=== PATIENT | female | born 1950 | race Caucasian/White ===

== ENCOUNTER 2016-12-29 17:57 | Inpatient (IN) | payer MEDICARE, OTHER ==
--- NOTE | ~2016-12-29 | CN ---
Consultation Report [facility] [address] [place]. [address] NAME: DENNIS SANDOVAL : 48 STATUS : ADM IN PAT#: [id number] AGE: 66 ADM/REG DATE : 12/29/16 MR#: [id number] REPORT SERV DATE: 12/30/16 DICTATED BY: INDRA RILEY DATE: 12/29/16 REPORT STATUS : Draft TRANSCRIBED BY: MODL DATE: 12/29/16 CONSULTATION DATE OF CONSULTATION: 12/29/2016 REASON FOR CONSULTATION: Regarding acute kidney injury brief. BRIEF HISTORY OF PRESENT ILLNESS: A 66-year-old white female with a history diabetes mellitus type 2, hypertension, morbid obesity with recent hospitalization at [facility] from 12/02/2016 through 12/06/2016 for influenza A and new onset paroxysmal atrial fibrillation, and was discharged in normal sinus rhythm on Betapace and digoxin therapy. The patient presents to [facility] ER with two days of nausea, vomiting, and abdominal pain. Recently diagnosed with UTI, placed on Bactrim therapy two days prior to admission as well. Poor p.o. intake and on evaluation, the patient was noted to have a BUN and creatinine of 65 and 5.17 with a baseline creatinine of 0.9, just last month. We are consulted for further evaluation and management of renal dysfunction. The patient currently being seen in the ICU, Griffin catheter in place with very concentrated minimal urine output. The patient received 1 L of normal saline in the ER, and then maintenance IV fluids. The patient is awake, but is lethargic and primary history is provided by family members at bedside. The patient is currently noted to be bradycardic with heart rate in the 30s. Digoxin level was noted to be elevated at 2.6. PAST MEDICAL HISTORY: 1. New onset atrial fibrillation, followed by Dr. Long, on digoxin and Betapace therapy. 2. Diabetes mellitus, type 2. 3. Hypertension. 4. Morbid obesity. 5. Anemia. 6. Recent influenza A, last month. 7. Intermittent uterine bleeding. MEDICATIONS ON ADMISSION: Include Lexapro 10 mg daily, estradiol EC, iron, Lasix 40 mg daily, Norvasc 5 mg b.i.d., Eliquis 5 mg b.i.d., digoxin 0.125 mg daily, Neurontin 600 mg t.i.d., Humalog insulin pump, Glucophage 1000 mg b.i.d., lisinopril hydrochlorothiazide 20/12.5 mg daily, Provera 5 mg daily, Nexium 40 mg daily, Betapace 80 mg b.i.d., Tamiflu 75 mg b.i.d., Tylenol p.r.n. [id number], MiraLAX, tramadol, Pravachol at bedtime. ALLERGIES: NO KNOWN DRUG ALLERGIES. SURGICAL HISTORY: Bilateral tubal ligation, wisdom tooth extraction. SOCIAL HISTORY: Denies tobacco, alcohol, or illicit drug use. FAMILY HISTORY: Positive for diabetes. Negative for coronary artery disease. Negative for Consultation Report [address] [place]. [address] NAME: DENNIS SANDOVAL : 48 STATUS : ADM IN [facility]#: [id number] AGE: 66 ADM/REG DATE : 12/29/16 MR#: [id number] REPORT SERV DATE: 12/30/16 DICTATED BY: INDRA RILEY DATE: 12/29/16 REPORT STATUS : Draft TRANSCRIBED BY: JIGAR DATE: 12/29/16 renal disease. REVIEW OF SYSTEMS: Negative except as mentioned in the HPI. PHYSICAL EXAMINATION: VITAL SIGNS: Temperature is 99.2, blood pressure 102/34, pulse of 39, respiratory rate is 12. GENERAL: Obese, white female, in no acute distress, awake, but lethargic. HEENT: Normocephalic, atraumatic. Pupils are equal. Sclerae anicteric. Mucous membranes are dry. NECK: Supple. No thyromegaly. CARDIOVASCULAR: Regular rate and rhythm. No murmurs appreciated. RESPIRATORY: : Clear to auscultation bilaterally with decreased breath sounds at bases. ABDOMEN: Soft, obese, nontender, and nondistended. Positive bowel sounds. EXTREMITIES: No clubbing, cyanosis with trace edema of the lower extremities bilaterally. SKIN: No rashes or ulcerations appreciated. NEURO: Moves all extremities well, but has generalized weakness. : Griffin catheter in place. LABORATORY DATA: Sodium 134, potassium 4.7, chloride 99, bicarb 20, BUN 65, creatinine 5.2, glucose is 144, calcium 7.6, magnesium 2.0, phosphorus 6.0. White count 20, hemoglobin is 8.7, and platelet count is 249. Troponin negative. TSH slightly elevated at 6.44. Albumin 2.8. Lactic acid 3.7. Cortisol is 8.9. UA, cloudy, 100 protein, negative blood, white blood cells 18, many white blood cell clumps, and occasional bacteria. ASSESSMENT AND PLAN: 1. Nonoliguric acute kidney injury. Likely multifactorial ATN with about prerenal condition plus Bactrim plus bradycardia, on Betapace and digoxin with toxicity and ANDREW inhibitor. Fluid resuscitate support, hemodynamics. Consider Digibind therapy. If no significant urine output over the next 12 hours, consider diuretic challenge. Continue supportive care. Monitor labs. No acute need for renal replacement therapy, and partners to follow in a.m. 2. Bradycardia. 3. Procardia and digoxin toxicity, questionable Digibind therapy. 4. Diabetes mellitus type 2. 5. Hypertension. Currently blood pressure controlled. 6. Obesity. Family updated at bedside and discussed with Dr. Jeong and RN. NCP/SUZYL Consultation Report [place] [id number] [facility] [place]. [address] NAME: DENNIS SANDOVAL : [birth year] STATUS : ADM IN PAT#: [id number] AGE: 66 ADM/REG DATE : 12/29/16 MR#: [id number] REPORT SERV DATE: 12/30/16 DICTATED BY: INDRA RILEY. DATE: 12/29/16 REPORT STATUS : Draft TRANSCRIBED BY: MODL DATE: 12/29/16 Indra Riley M.D. / [id number] CC: MD Mayra Soria NP
--- NOTE | ~2016-12-29 | HP ---
History And Physical [place] [address] [facility] [place]. [address] NAME: DENNIS MENDENHALL : 49 STATUS : ADM IN [facility]#: [id number] AGE: 66 ADM/REG DATE : 12/29/16 MR#: [id number] REPORT SERV DATE: 12/30/16 DICTATED BY: HEATHER WHITTEN DATE: 12/29/16 REPORT STATUS : Draft TRANSCRIBED BY: MODL DATE: 12/29/16 DATE OF ADMISSION: 12/29/2016 REASON FOR ADMISSION: Acute renal failure and metabolic acidosis with clinical evidence of dehydration. HISTORY OF PRESENT ILLNESS: Ms. Mendenhall is a 66-year-old lady who presented from home complaining of weakness with dry mouth and overall feeling poorly for the last couple of days. Evidently, she had been seen by her primary care physician on Tuesday who evaluated her, diagnosed a urinary tract infection, and started her on Bactrim and Pyridium as treatment. Since that time, she has been worsening with regard to generalized weakness and decreased urine output. Of note, her intake has been fairly poor as well. She reports not eating or drinking much of anything the last couple of days, and her family reports that she has been somewhat confused. Upon presentation to the emergency department today, she was noted to have hypoglycemia and mild lactic acidosis with acute renal failure on her labs. She did receive around 1 L of fluid total in the emergency department and was moved up to the CCU for further management. Additional lab workup showed leukocytosis with bandemia and some pyuria on UA. PAST MEDICAL HISTORY: Other past medical history of diabetes mellitus with chronic insulin pump use, GERD, hypertension, dyslipidemia, anxiety, depression, paroxysmal atrial fibrillation which was a new diagnosis in mid November during her hospitalization at [facility], recent influenza A also diagnosed during that hospitalization at [facility], and iron-deficiency anemia. SURGICAL HISTORY: Had a bilateral tubal ligation in the 1970s, wisdom tooth extraction, hysteroscopy with D and C on 12/29/2010, and colonoscopy in 2005. SOCIAL HISTORY: Denies tobacco, alcohol, or illicit drug use. She is dependent on family for care since she has been sick. FAMILY HISTORY: Multiple first-degree relatives with type 2 diabetes mellitus. She has no advanced directives or living monroe. Her family is assisting with medical decision making while she is ill. ALLERGIES: DRUG ALLERGIES ARE NONE. HOME MEDICATIONS: Amlodipine 5 mg twice a day; Eliquis 5 mg twice a day; digoxin 0.125 mg every morning; Lexapro 10 every morning; Nexium 40 mg at bedtime; estradiol 2 mg at bedtime; iron supplementation twice daily, 200 mg; Lasix 40 mg every morning; Neurontin 600 mg three times daily; Medtronic Mini-Med insulin pump with Humalog continuous infusion subcutaneously; lisinopril/hydrochlorothiazide 20/12.5 two tablets every morning; medroxyprogesterone 5 mg every morning; Glucophage 1000 mg at breakfast and dinner; MiraLAX 1 packet twice a day as needed for constipation; 20 mg of Pravachol daily; sotalol 80 mg twice a day; loperamide as needed for diarrhea; and Tylenol as needed for headaches or pain. History And Physical [address] [address] NAME: DENNIS MENDENHALL : 49 STATUS : ADM IN [facility]#: [id number] AGE: 66 ADM/REG DATE : 12/29/16 MR#: [id number] REPORT SERV DATE: 12/30/16 DICTATED BY: HEATHER WHITTEN DATE: 12/29/16 REPORT STATUS : Draft TRANSCRIBED BY: JIGAR DATE: 12/29/16 New medications include Pyridium 200 mg three times daily for urinary tract burning and Bactrim 1 tab b.i.d. (double strength tab) beginning on 12/27/2016. REVIEW OF SYSTEMS: A comprehensive 13-point review of systems was completed and was negative except for those points described above in the history of present illness section of the dictation. PHYSICAL EXAMINATION: VITAL SIGNS: Heart rate is 38, blood pressure is 118/51, respiration rate is ranging from 30 to 40, oxygen saturation is 98% on Vapotherm unit, she was previously on 10 L of oxygen. She is afebrile and awake but mildly encephalopathic. HEENT: She is a female with dry mouth and lips. Head is atraumatic and normocephalic. Pupils are equal, round, and reactive to light. Extraocular movements are intact. She has mild conjunctival pallor and slightly sunken eyes. Ears, nose, and mouth are unremarkable except for very dry oral mucosa and fair oral dentition. NECK: Supple with some redundant soft tissue limiting assessment of JVD. She has diminished breath sounds, bilateral bases. HEART: Bradycardic with sinus bradycardia on the monitor. She has sluggish cap refill, distal extremities, but it is warm to touch throughout. ABDOMEN: Soft, obese, nontender, and nondistended with positive bowel sounds in all four quadrants and no appreciable peritoneal signs. : A Griffin catheter is indwelling and draining a very minimal amount of dark urine. EXTREMITIES: Without clubbing, cyanosis, or edema. LYMPHATIC: Unremarkable. NEUROLOGIC: She is oriented x1 but is able to follow commands. She is able to provide some of her history which is augmented by her family. Moves all four extremities. Withdraws to pain symmetrically. Cranial nerve function appears to be intact. PSYCHIATRIC: Some confusion/encephalopathy as above but appropriate to situation. DIAGNOSTIC DATA: Personal review of diagnostic workup conducted today, her initial glucose was 48. Her initial ABG was 7.323, 36 of pCO2, PO2 of 154, base excess of 7.5, and a bicarb calculated at 18 on 100% FiO2. Lactate was 3.5 initially which had risen to 3.7 on followup study a few hours later. A urinalysis showed cloudy red urine with specific gravity of 1.020 with 100 of protein, negative leukocyte esterase, negative nitrite, 18 white blood cells, and many white blood cell clumps with many yeast which were budding. White blood cell count was 19.9 with 12% bands on differential. Hemoglobin is 8.7, hematocrit is 29.2, and platelet count is 249. Her INR is 2.6 in the setting of Eliquis use and impaired renal clearance. Metabolic Profile: Sodium is 134, potassium is 4.7, chloride is 99, carbon dioxide is 20, BUN is 65, and creatinine is 5.17 which is a delta from 38 and 0.90 on 12/05/2016. Calculated GFR is 18 mL/minute. Glucose is 144. On the chemistry panel, mag is 2.0, phosphorus is 6.0, CPK is 77, and CK-MB is 2.5. Troponin is negative. TSH is 6.440 which is a delta from 1.8 of 2013. Free T4 is 1.17. Digoxin is mildly elevated at 2.6. Cortisol is 58.9. BNP level is 281.2. Glycohemoglobin is 7.5. An echocardiogram on 12/02/2016 showed normal valves with hyperdynamic ejection fraction and mild diastolic dysfunction. An EKG performed in the emergency department showed sinus bradycardia with a QT prolongation at 484 and a rate of 48 beats per minute. A chest x-ray showed marked cardiomegaly, low lung volumes, and some hazy opacification bilaterally with few cardiac leads traversing the anterior chest. Bony structures are unremarkable on my assessment, History And Physical [address] [address] NAME: DENNIS MENDENHALL : 48 STATUS : ADM IN PAT#: [id number] AGE: 66 ADM/REG DATE : 12/29/16 MR#: [id number] REPORT SERV DATE: 12/30/16 DICTATED BY: HEATHER WHITTEN DATE: 12/29/16 REPORT STATUS : Draft TRANSCRIBED BY: JIGAR DATE: 12/29/16 although the radiologist's formal read remains pending. IMPRESSION: 1. Acute hypoxemic respiratory failure requiring Vapotherm for oxygenation support. 2. Acute renal failure in the setting of some degree of chronic kidney disease superimposed onto the use of ANDREW inhibitors and metformin as well as initiation of Bactrim double strength 2 days ago with minimal urine output since arrival and clinical evidence of marked volume depletion. 3. Mild metabolic acidosis. 4. History of paroxysmal atrial fibrillation with new initiation of multiple antiarrhythmic medications since her hospitalization a couple of weeks ago in the setting of impaired renal clearance. 5. Diabetes mellitus with chronic use of insulin pump. 6. Digoxin toxicity (mild) in the setting of impaired renal clearance. 7. Pyuria. 8. Past medical history of hypertension, dyslipidemia, GERD, diastolic dysfunction, recent influenza A, and long-term hormone replacement therapy use. 9. Elevated TSH at 6.440 without known history of thyroid disease in the past. 10.Leukocytosis with bandemia. 11.Normocytic hypochromic anemia in the setting of noted iron deficiency, on replacement. 12.Lactic acidosis. 13.Hypoglycemia at 48 on initial Accu-Chek at presentation in the emergency department. 14.Altered mental status likely secondary to some combination of the above. PLAN: We have already admitted Ms. Mendenhall to the Critical Care Unit. We will aggressively hydrate her and trend her renal function and urine output carefully. We will hold any potentially nephrotoxic home medications including Lasix, metformin, and also hold her anti- arrhythmic medications as she does have impaired renal clearance presently. Dr. Riley has evaluated her this evening and Dr. Long is also aware of her hospitalization. We will rule out rhabdomyolysis, cover her with broad-spectrum antibiotics, check a procalcitonin level, and make further adjustments to her regimen as clinically warranted. Her family was updated at the bedside with regard to the plan of care. Allison, in the CCU, she is full code. We will obtain further medical records and nursing staff was also updated on plan for care allison. RANI/JIGAR Heather Whitten MD / [id number] CC: MD Mayra Soria NP
--- NOTE | ~2016-12-29 | CN ---
Consultation Report [facility] [address] [place]. [address] NAME: DENNIS SANDOVAL : 48 STATUS : ADM IN PAT#: [id number] AGE: 66 ADM/REG DATE : 12/29/16 MR#: [id number] REPORT SERV DATE: 12/31/16 DICTATED BY: AJ WHITTEN DATE: 12/30/16 REPORT STATUS : Draft TRANSCRIBED BY: JIGAR DATE: 12/30/16 CPR/CODE BLUE RESPONSE NOTE. DATE OF CONSULTATION: DATE OF CODE BLUE: 12/30/2016. TIME OF CODE BLUE: 2328 hours. LOCATION OF CODE BLUE: CCU bed 5 Code Blue was called by bedside nurse at 2328 hours. The patient had been quite stable throughout the evening with no major clinical changes. At around 2327 hours, she suddenly rey down to asystole. She was quite cyanotic despite being very easy to bag. ACLS was initiated immediately and she was connected to the defibrillator, an amp of epinephrine was given immediately upon availability of code drugs at 2328 hours and initial pulse check at 2330 hours, she was in asystole. She received additional epinephrine, amp of bicarb, and an amp of calcium chloride. CPR was continued, and on second rhythm check at 2332 hours, she was still in asystole, additional amps of epinephrine were given as well as additional amps of bicarb and calcium chloride and an amp of D50. ACLS was continued for 3 more rounds with persistent asystole on the monitor. A point of care ultrasound was used to visualize the heart which showed no cardiac contractility and dilated right atrium and ventricle, point of care ultrasound was used to visualize vasculature of the groin and noncompressible vein was noted on the right, overlying the pulsatile femoral artery laterally. There was a high clinical suspicion for acute pulmonary embolus and in light of her persistent asystole despite 6 rounds of epinephrine and compression. ACLS was discontinued, and the patient at 2340 hours. Her sister Harini was updated by telephone twice during her Code Blue by myself and the bedside nurses and all of her questions were answered. Family was en route to the hospital at the time of this dictation. RANI/JIGAR Aj Whitten MD / [id number] CC: MD Jannette Soria
--- NOTE | ~2016-12-29 | DS ---
Discharge Summary [facility] [address] [place]. [address] NAME: DENNIS MENDENHALL : 48 STATUS : ADM IN PAT#: [id number] AGE: 66 ADM/REG DATE : 12/29/16 MR#: [id number] REPORT SERV DATE: 12/31/16 DICTATED BY: AJ WHITTEN DATE: 12/30/16 REPORT STATUS : Draft TRANSCRIBED BY: MODL DATE: 12/30/16 ADMISSION DATE: 12/29/2016 DISCHARGE DATE: SUMMARY DATE OF : 12/30/2016 BRIEF HISTORY OF PRESENT ILLNESS: Ms. Mendenhall is a 66-year-old lady with underlying type 2 diabetes mellitus, hypertension, and morbid obesity, who presented to our facility with acute renal failure. She was actually admitted to [facility] mid November and was started on Betapace and digoxin. She presented to her primary care physician on Tuesday of this week with urinary tract infection and was placed on Bactrim therapy and presented to our emergency department last night complaining of nausea and vomiting and increased edema with findings of metabolic acidosis and acute renal failure on her labs. She was seen by Dr. Long from Cardiology and Dr. Riley from Nephrology and the consensus was that she had multifactorial acute tubular necrosis with prerenal condition superimposed on to recent Bactrim use in the setting of underlying ANDREW inhibitor and metformin use and toxicity from digoxin due to impaired renal clearance. She was treated with Digibind and was started on HRIS COORDINATOR. She was intubated for worsening respiratory distress associated with fluid administration. She was clinically stable on low-dose Levophed and mechanical ventilation with HRIS COORDINATOR circuit running on the evening of 12/30/2016 and her bedside nurse who was in the room at the time of her declined suddenly noticed that she had become further more bradycardic and quite cyanotic. ACLS was immediately initiated and she underwent six rounds of drugs and compressions. Her rhythm never moved out of asystole during her cardiac code, a point of care ultrasound was performed and noncompressible vein was noted over the right groin (the right common femoral vein) and echocardiogram showed no cardiac contractility. No evidence of pericardial effusion but a markedly dilated right atrium and ventricle. There was high clinical suspicion for pulmonary embolus especially in light of her lack of response to epinephrine and chest compressions and ultimately resuscitated efforts were discontinued and she at 2340. Her sister Harini was updated by telephone on this evening's events and all of her questions were answered. DIAGNOSES: At the time of included: 1. Acute hypoxemic respiratory failure with associated asystole cardiac arrest with high clinical suspicion for acute pulmonary embolus. 2. Non-oliguric acute kidney injury secondary to multifactorial acute tubular necrosis. Contributing factors including prerenal condition and medications including Bactrim, ANDREW inhibitor, and metformin. 3. Digoxin toxicity with associated bradycardia status post treatment with Digibind secondary to number two. 4. Paroxysmal atrial fibrillation. 5. Type 2 diabetes mellitus. 6. History of hypertension and obesity with recent influenza A infection last month. Discharge Summary [address] [address] NAME: DENNIS MENDENHALL : 48 STATUS : ADM IN PAT#: [id number] AGE: 66 ADM/REG DATE : 12/29/16 MR#: [id number] REPORT SERV DATE: 12/31/16 DICTATED BY: AJ WHITTEN DATE: 12/30/16 REPORT STATUS : Draft TRANSCRIBED BY: JIGAR DATE: 12/30/16 RANI/JIGAR Aj Whitten MD / [id number] CC: MD Mayra Soria NP
--- NOTE | ~2016-12-29 | OP ---
Record Of Operation [facility] [address] [place]. [address] NAME: DENNIS SANDOVAL : 48 STATUS : ADM IN [facility]#: [id number] AGE: 66 ADM/REG DATE : 12/29/16 MR#: [id number] REPORT SERV DATE: 12/30/16 DICTATED BY: AJ WHITTEN DATE: 12/30/16 REPORT STATUS : Draft TRANSCRIBED BY: MODL DATE: 12/30/16 DATE OF PROCEDURE: 12/30/2016 INTUBATION NOTE INDICATION: Intubation, respiratory distress, and hypoxemia. PREMEDICATION: Etomidate 20 and rocuronium 50 mg. PROCEDURE IN DETAIL: After developing worsening respiratory distress over the last hour with hypoxemia requiring 100% oxygen, decision was made to intubate for airway protection and advanced respiratory support. She was premedicated with the above medications and #3 GlideScope was used to visualize her fairly anterior vocal cords and a #7.5 tube was passed through them on the first attempt without difficulty and secured to the patient at 22 cm at the lips. She had bilateral breath sounds. Positive color change on CO2 detector. Condensation in the tube with bagging and no air auscultated over the fundus of the stomach with bagging. A followup chest x-ray was pending at the time of this dictation and her sisters were updated by telephone of her clinical deterioration. RANI/JIGAR Aj Whitten MD / [id number] CC: MD ROC Soria
--- NOTE | ~2016-12-29 | CN ---
Consultation Report [facility] [address] [place]. [address] NAME: DENNIS MENDENHALL : 48 STATUS : ADM IN PAT#: [id number] AGE: 66 ADM/REG DATE : 12/29/16 MR#: [id number] REPORT SERV DATE: 12/30/16 DICTATED BY: CHARLIE RAMIREZ DATE: 12/30/16 REPORT STATUS : Draft TRANSCRIBED BY: MODL DATE: 12/30/16 CARDIOVASCULAR CONSULTATION DATE OF CONSULTATION: 12/30/2016 REFERRING PHYSICIAN: Mayra Altamirano. REASON FOR CONSULTATION: Digoxin toxicity. HISTORY OF PRESENT ILLNESS: Ms Dennis Mendenhall is a 66-year-old female with past medical history significant for diabetes, hypertension, gastroesophageal reflux disease, depression, and anxiety, who presented to the emergency room last night complaining of two days of nausea, vomiting, and abdominal pain. The patient had recently been admitted to [facility] in November secondary to the flu. She had paroxysmal atrial fibrillation at that time, which was successfully treated. She was discharged on Betapace and digoxin. The patient was found to be digitoxic in the emergency room with heart rate in the 30s. She was given Digibind and dopamine which maintained her blood pressure and increased her heart rate into the 40s. She was intubated overnight secondary to respiratory distress. REVIEW OF SYSTEMS: Obtained per chart and discussion with the ER physician. This patient is now intubated. As noted above, significant for nausea, vomiting, and abdominal pain for two days. The patient also had reported a recent urinary tract infection and was placed on Bactrim. PAST MEDICAL HISTORY: As noted above, significant for paroxysmal atrial fibrillation, on digoxin and Betapace. The patient also with a history of hypertension, recent Influenza A, morbid obesity, anxiety, and depression, gastroesophageal reflux disease, and hypertension. MEDICATIONS: Prior to admission, see list. ALLERGIES: THE PATIENT HAS NO KNOWN DRUG ALLERGIES. SOCIAL HISTORY: The patient does not smoke. FAMILY HISTORY: Negative for coronary artery disease. PHYSICAL EXAMINATION: VITAL SIGNS: Blood pressure 90/55, pulse 45. The patient is currently intubated. GENERAL: This is a well-developed, well-nourished, obese 66-year-old female, who is currently intubated and sedated. CARDIOVASCULAR: Decreased rate with regular rhythm. No murmur, gallop, click, or rub. LUNGS: Clear to auscultation. EXTREMITIES: Reveals 1+ lower extremity pitting edema. Consultation Report [facility] [address] [place]. [address] NAME: DENNIS MENDENHALL : 48 STATUS : ADM IN PAT#: [id number] AGE: 66 ADM/REG DATE : 12/29/16 MR#: [id number] REPORT SERV DATE: 12/30/16 DICTATED BY: CHARLIE RAMIREZ DATE: 12/30/16 REPORT STATUS : Draft TRANSCRIBED BY: MODL DATE: 12/30/16 LABORATORY DATA: On admission was significant for a potassium of 4.7, which has now increased to 5.7. BUN and creatinine are 66 and 5.59. White count has increased from 19.9 to 25.2. EKG shows sinus bradycardia with poor R-wave progression in septal leads. There is no acute injury pattern. No evidence of ongoing ischemia. ASSESSMENT: 1. Acute renal failure. 2. Questionable urosepsis. 3. Digoxin toxicity secondary to acute renal failure with digoxin and sotalol therapy. 4. Paroxysmal atrial fibrillation-now sinus rey. 5. Diabetes mellitus type 2. 6. Hypertension. PLAN: 1. Renal support. 2. Digibind. 3. Hold Betapace and digoxin. 4. Hold ANDREW inhibitor. 5. Continue dopamine as needed for heart rate and blood pressure. Her heart rate should increase as renal function improves and the digoxin level drops. I do not see the need for temporary pacemaker at this juncture. I appreciate your consultation on this complex patient. I will follow her closely with you. /JIGAR Charlie Ramirez M.D., [facility] / [id number] CC: MD ROMERO Soria VICKY L .
[2016-12-29 17:34] LABS: ALLENS TEST Pos; BE (BASE EXCESS) -7.5 MEQ/L (0 +/- 2.5); DEVICE NRB; HCO3 (ACTUAL BICARBONATE) 17.9 MEQ/L (23-27); HEMOBLOGIN CONTENT 9.8 G/DL (12-16); INSTRUMENT SERIAL # 8087; METHEMOGLOBIN 0.3 % (0-3); O2 CONTENT 13.8 VOL% (18-24); PCO2 (CO2 TENSION) 36 MMHG (35-45); PO2 (O2 TENSION) 154 MMHG (79-93); SAMPLE Arterial; pH 7.32 (7.37-7.43)
[~2016-12-29 17:57] MED LIST: ANADS PO; BETAPACE80 PO; BEYAZ 28 TABLE1 EACH PO; COREG3 PO; ELIQUIS 5 MG TAB5 MG PO; ESTRADIOL2 MG OR; ESTRADIOL2 MG PO; EZFE 200200 MG PO; GLUCOPHAGE1000 MG PO; HUMAPUMP SC; L40 PO; LAN125 PO; LEXAPRO10 PO; LYSTEDA; MIRALAX POWDER1 PKT PO; NEUR600 PO; NEXIUM40; NEXIUM40 PO; NORV5 PO; PRAVAC PO; PRINZIDE1 TA1 PO; PROVERA5 MG PO; REOCYTE PLUS OR; TAMIFLU PO; TRAZODONE150 MG PO; VICTOZA SC; ZESTORETIC1 TA1 PO
[2016-12-29 18:11] LABS: BASOPHILS 0.5 %; BASOPHILS ABSOLUTE 0.09 10/3/uL (0.0-0.16); EOSINOPHILS ABSOLUTE 0.39 10/3/uL (0.0-0.53); HEMOGLOBIN 8.7 g/dL (12.0-16.0); IMMATURE GRANULOCYTES 1.1 %; IMMATURE GRANULOCYTES ABSOLUTE 0.21 10/3/uL (0.0-0.11); LYMPHOCYTES 15.3 %; LYMPHOCYTES ABSOLUTE 3.04 10/3/uL (0.67-4.30); MEAN CORPUS HGB CONC 29.8 g/dL (32.0-36.0); MEAN CORPUSCULAR HEMOGLOB 24.2 pg (26.0-34.0); MEAN CORPUSCULAR VOLUME 81.1 fL (80-100); MONOCYTES 5.8 %; MONOCYTES ABSOLUTE 1.15 10/3/uL (0.21-1.20); NEUTROPHILS 75.3 %; NEUTROPHILS ABSOLUTE 14.98 10/3/uL (2.02-8.40); NUCLEATED RED BLOOD CELLS 0.5 /100WBC (0-0); RBC DISTRIBUTION WIDTH 20.9 % (12.0-16.0)
[2016-12-29 18:12] LABS: INTERNATIONAL NORMAL RATI 2.6 UNITS (-); PARTIAL THROMBO TIME 34.5 SEC (22.5-37.2)
[2016-12-29 18:13] LABS: PROTIME (NOT ORD) 27.3 SEC (12.0-14.5)
[2016-12-29 18:16] LABS: ER CBC TAT 0 Hrs 25 Mins; HEMATOCRIT 29.2 % (36.0-48.0); PLATELET COUNT 249 10/3/uL (150-400); WHITE BLOOD CELLS 19.9 10/3/uL (4.5-10.5)
[2016-12-29 18:17] LABS: MANUAL DIFF NO %
[2016-12-29 18:19] LABS: LACTATE 3.5 MMOL/L (0.3-2.4)
[2016-12-29 18:22] LABS: B NATRIURETIC PEPTIDE (BNP) 281.2 PG/ML (< 100.0)
[2016-12-29 18:28] LABS: BUN (BLOOD UREA NITROGEN) 65 MG/DL (6-23); CALCIUM, SERUM 7.6 MG/DL (8.5-10.4); CHEST PAIN PROFILE TAT 0 Hrs 25 Mins; CHLORIDE, SERUM 99 MMOL/L (96-112); CO2 (CARBON DIOXIDE) 20 MMOL/L (24-34); CREATININE 5.17 MG/DL (0.55-1.02); GFR AFRICAN AMERICAN 9 ML/MIN (>=60); GFR NON AFRICAN AMERICAN 8 ML/MIN (>=60); GLUCOSE, SERUM 144 MG/DL (60-99); POTASSIUM, SERUM 4.7 MMOL/L (3.5-5.3); SODIUM, SERUM 134 MMOL/L (135-148); TROPONIN I <0.02 NG/ML (<0.05)
[2016-12-29 18:29] LABS: DIGOXIN 2.6 NG/ML (0.8-2.0)
[2016-12-29 18:57] LABS: ASCORBIC ACID (UR NOT ORDER) NEG (NEG); BILIRUBIN, URINE NEGATIVE (NEG); ER URINALYSIS TAT 0 Hrs 20 Mins; KETONE, URINE NEGATIVE (NEG); LEUKOCYTE ESTERASE(NOT OR NEG (NEG); NITRITE (URINE) NEG (NEG); WBC (NOT ORDERED) (RFLEX) 18 (0-5)
[2016-12-29 19:33] LABS: SEGMENTED NEUTROPHIL (0) 70 %; TOTAL NUCLEATED CELLS 100
[2016-12-29 19:34] LABS: ANISOCYTOSIS 1+ (5-10/OIF) (0-5/OIF); BAND NEUTROPHILS 12 %; EOSINOPHILS 2 %; ER DIFF TAT 1 Hrs 42 Mins; LYMPHOCYTES 11 %; LYMPHOCYTES ABSOLUTE (CALC) 2.19 10/3/uL (0.67-4.30); METAMYELOCYTES 2 %; MONOCYTES 3 %; NEUTROPHILS ABSOLUTE (CALC) 16.32 10/3/uL (2.02-8.40); PLATELET ESTIMATE ADQ (ADEQUATE)
[2016-12-29] MEDS ORDERED: LAN125 PO (19:40)
[2016-12-29] MEDS ORDERED: ELIQUIS 5 MG TAB5 MG PO (19:40)
[2016-12-29] MEDS ORDERED: NORV5 PO (19:40)
[2016-12-29] MEDS ORDERED: EZFE 200200 MG PO (19:41)
[2016-12-29] MEDS ORDERED: NEXIUM40 PO (19:41)
[2016-12-29] MEDS ORDERED: LEXAPRO10 PO (19:41)
[2016-12-29] MEDS ORDERED: L40 PO (19:41)
[2016-12-29] MEDS ORDERED: GYNODIOL2 MG PO (19:41)
[2016-12-29] MEDS ORDERED: HUMAPUMP SC (19:42)
[2016-12-29] MEDS ORDERED: NEUR600 PO (19:42)
[2016-12-29] MEDS ORDERED: GLUCOPHAGE1000 MG PO (19:43)
[2016-12-29] MEDS ORDERED: MIRALAX POWDER1 PKT PO (19:43)
[2016-12-29] MEDS ORDERED: PRAVAC PO (19:43)
[2016-12-29] MEDS ORDERED: ZESTORETIC PO (19:43)
[2016-12-29] MEDS ORDERED: PROVERA5 MG PO (19:43)
[2016-12-29] MEDS ORDERED: BETAPACE80 PO (19:44)
[2016-12-29] MEDS ORDERED: ACET500CAP PO (19:52)
[2016-12-29] MEDS ORDERED: IMOD PO (19:52)
[2016-12-29] MEDS ORDERED: PYR200 PO (19:56)
[2016-12-29] MEDS ORDERED: SEPTRA DS1 TAB PO (19:56)
[2016-12-29 20:59] LABS: CPK 77 U/L (0-200); FREE T4 1.17 NG/DL (0.76-1.46)
[2016-12-29 21:05] LABS: CK-MB 2.5 NG/ML
[2016-12-29 21:17] LABS: GLYCOHEMOGLOBIN (HbA1c) 7.5 % (4.7-6.1)
[2016-12-30 02:12] LABS: SED RATE 106 MM/HR (0-20)
[2016-12-30 04:26] LABS: HEMATOCRIT 30.6 % (36.0-48.0); HEMOGLOBIN 9.2 g/dL (12.0-16.0); MEAN CORPUS HGB CONC 30.1 g/dL (32.0-36.0); MEAN CORPUSCULAR HEMOGLOB 24.5 pg (26.0-34.0); MEAN CORPUSCULAR VOLUME 81.4 fL (80-100); MEAN PLATELET VOLUME 11.2 fL (9.2-13.0); NUCLEATED RED BLOOD CELLS 0.5 /100WBC (0-0); RBC DISTRIBUTION WIDTH 20.5 % (12.0-16.0); RED CELL COUNT 3.76 10/6/uL (4.0-5.6)
[2016-12-30 04:30] LABS: PLATELET COUNT 332 10/3/uL (150-400); WHITE BLOOD CELLS 25.2 10/3/uL (4.5-10.5)
[2016-12-30 04:33] LABS: MANUAL DIFF YES %
[2016-12-30 05:18] LABS: A/G RATIO 0.4 (0.7-1.9); ALBUMIN 2.3 G/DL (3.5-5.0); ALKALINE PHOSPHATASE 92 U/L (45-117); BUN (BLOOD UREA NITROGEN) 66 MG/DL (6-23); CALCIUM, SERUM 8.1 MG/DL (8.5-10.4); CHLORIDE, SERUM 101 MMOL/L (96-112); CO2 (CARBON DIOXIDE) 17 MMOL/L (24-34); CPK 58 U/L (0-200); CREATININE 5.36 MG/DL (0.55-1.02); GFR AFRICAN AMERICAN 9 ML/MIN (>=60); GFR NON AFRICAN AMERICAN 8 ML/MIN (>=60); GLOBULIN 5.6 G/DL (2.5-4.1); GLUCOSE, SERUM 122 MG/DL (60-99); PHOSPHORUS, SERUM 6.5 MG/DL (2.5-4.5); POTASSIUM, SERUM 5.4 MMOL/L (3.5-5.3); SGOT(AST) 20 U/L (5-40); SGPT(ALT) 13 U/L (5-65); SODIUM, SERUM 134 MMOL/L (135-148); TOTAL BILIRUBIN 0.6 MG/DL (0-1.2); TOTAL PROTEIN 7.9 G/DL (6.0-8.5)
[2016-12-30 05:19] LABS: DIGOXIN 3.2 NG/ML (0.8-2.0)
[2016-12-30 05:46] LABS: ANISOCYTOSIS 1+ (5-10/OIF) (0-5/OIF); BAND NEUTROPHILS 9 %; HYPOCHROMIA 1+ (3-10/OIF) (0-2/OIF); LYMPHOCYTES 11 %; LYMPHOCYTES ABSOLUTE (CALC) 2.77 10/3/uL (0.67-4.30); MONOCYTES 2 %; NEUTROPHILS ABSOLUTE (CALC) 21.92 10/3/uL (2.02-8.40); SEGMENTED NEUTROPHIL (0) 78 %; TOTAL NUCLEATED CELLS 100
[2016-12-30 06:24] LABS: BE (BASE EXCESS) -8.9 MEQ/L (0 +/- 2.5); INSTRUMENT SERIAL # 35151; PCO2 (CO2 TENSION) 29 MMHG (35-45); PO2 (O2 TENSION) 324 MMHG (79-93); pH 7.34 (7.37-7.43)
[2016-12-30 06:25] LABS: CARBOXYHEMOGLOBIN 0.3 % (0-3); HCO3 (ACTUAL BICARBONATE) 15.6 MEQ/L (23-27); HEMOBLOGIN CONTENT 10.1 G/DL (12-16); METHEMOGLOBIN 0.6 % (0-3); MODE APRV; O2 CONTENT 14.9 VOL% (18-24); SAMPLE Arterial
[2016-12-30 06:31] LABS: OSMOLALITY, URINE 315 MOSM/KG (50-1200)
[2016-12-30 06:33] LABS: CREATININE, URINE 87.4 MG/DL
[2016-12-30 06:57] LABS: AMPHETAMINES (NOT ORD) NEG (NEG); BARBITURATES (NOT ORDERED NEG (NEG); BENZODIAZEPINES (NOT ORD) NEG (NEG); CANNABINOIDS (THC) NEG (NEG); COCAINE (NOT ORDERED) NEG (NEG); OPIATES NEG (NEG); PHENCYCLIDINE(PCP) NEG (NEG); TRICYCLICS NEG (NEG)
[2016-12-30 07:33] LABS: ALBUMIN 2.3 G/DL (3.5-5.0); BUN (BLOOD UREA NITROGEN) 66 MG/DL (6-23); CALCIUM, SERUM 7.9 MG/DL (8.5-10.4); CHLORIDE, SERUM 99 MMOL/L (96-112); CO2 (CARBON DIOXIDE) 16 MMOL/L (24-34); POTASSIUM, SERUM 5.7 MMOL/L (3.5-5.3); SODIUM, SERUM 134 MMOL/L (135-148)
[2016-12-30 07:34] LABS: GLUCOSE, SERUM 186 MG/DL (60-99)
[2016-12-30 07:56] LABS: CREATININE 5.59 MG/DL (0.55-1.02); GFR AFRICAN AMERICAN 8 ML/MIN (>=60); GFR NON AFRICAN AMERICAN 7 ML/MIN (>=60); PHOSPHORUS, SERUM 6.6 MG/DL (2.5-4.5); PREALBUMIN 6.3 MG/DL (17.0-43.0)
[2016-12-30 09:35] LABS: ALBUMIN 2.1 G/DL (3.5-5.0); CALCIUM, SERUM 7.8 MG/DL (8.5-10.4); CHLORIDE, SERUM 100 MMOL/L (96-112); CREATININE 5.67 MG/DL (0.55-1.02); GFR AFRICAN AMERICAN 8 ML/MIN (>=60); GFR NON AFRICAN AMERICAN 7 ML/MIN (>=60); GLUCOSE, SERUM 191 MG/DL (60-99); PHOSPHORUS, SERUM 6.7 MG/DL (2.5-4.5); POTASSIUM, SERUM 5.9 MMOL/L (3.5-5.3); SODIUM, SERUM 131 MMOL/L (135-148)
[2016-12-30 09:36] LABS: BUN (BLOOD UREA NITROGEN) 70 MG/DL (6-23); CO2 (CARBON DIOXIDE) 14 MMOL/L (24-34)
[2016-12-30 11:25] LABS: BE (BASE EXCESS) -10.3 MEQ/L (0 +/- 2.5); HCO3 (ACTUAL BICARBONATE) 12.7 MEQ/L (23-27); INSTRUMENT SERIAL # 35151; METHEMOGLOBIN 0.8 % (0-3); PCO2 (CO2 TENSION) 22 MMHG (35-45); PO2 (O2 TENSION) 126 MMHG (79-93); pH 7.39 (7.37-7.43)
[2016-12-30 11:26] LABS: ALLENS TEST Pos; HEMOBLOGIN CONTENT 12.2 G/DL (12-16); MODE APRV; O2 CONTENT 16.9 VOL% (18-24); SAMPLE Arterial
[2016-12-30 11:28] LABS: A/G RATIO 0.4 (0.7-1.9); ALKALINE PHOSPHATASE 94 U/L (45-117); GLOBULIN 5.4 G/DL (2.5-4.1); SGPT(ALT) 15 U/L (5-65); TOTAL BILIRUBIN 0.7 MG/DL (0-1.2); TOTAL PROTEIN 7.5 G/DL (6.0-8.5)
[2016-12-30 11:30] LABS: SGOT(AST) 29 U/L (5-40)
[2016-12-30 11:50] LABS: PROCALCITONIN 0.75 ng/mL (<0.5)
[2016-12-30 13:23] LABS: HEPATITIS B SURFACE ANTIGEN NON-REACTIVE (NON-REACT)
[2016-12-30 13:50] LABS: HEPATITIS C ANTIBODY NON-REACTIVE (NON-REACT)
[2016-12-30 13:51] LABS: HEPATITIS B CORE AB IGM NON-REACTIVE (NON-REAC); HIV COMBO NON-REACTIVE (NON REAC)
[2016-12-30 13:52] LABS: HEP A ANTIBODY IGM NON-REACTIVE (NON-REACT)
[2016-12-30 17:53] LABS: HEMATOCRIT 28.5 % (36.0-48.0); HEMOGLOBIN 8.4 g/dL (12.0-16.0); MEAN CORPUS HGB CONC 29.5 g/dL (32.0-36.0); MEAN CORPUSCULAR HEMOGLOB 24.3 pg (26.0-34.0); MEAN CORPUSCULAR VOLUME 82.4 fL (80-100); MEAN PLATELET VOLUME 10.7 fL (9.2-13.0); PLATELET COUNT 289 10/3/uL (150-400); RBC DISTRIBUTION WIDTH 20.9 % (12.0-16.0); RED CELL COUNT 3.46 10/6/uL (4.0-5.6)
[2016-12-30 17:54] LABS: MANUAL DIFF YES %; WHITE BLOOD CELLS 29.4 10/3/uL (4.5-10.5)
[2016-12-30 17:59] LABS: CALCIUM, SERUM 7.5 MG/DL (8.5-10.4); CHLORIDE, SERUM 97 MMOL/L (96-112); POTASSIUM, SERUM 5.2 MMOL/L (3.5-5.3); SODIUM, SERUM 133 MMOL/L (135-148)
[2016-12-30 18:00] LABS: BUN (BLOOD UREA NITROGEN) 52 MG/DL (6-23); CO2 (CARBON DIOXIDE) 17 MMOL/L (24-34); CREATININE 4.27 MG/DL (0.55-1.02); GFR AFRICAN AMERICAN 12 ML/MIN (>=60); GFR NON AFRICAN AMERICAN 10 ML/MIN (>=60); GLUCOSE, SERUM 230 MG/DL (60-99)
[2016-12-30 18:43] LABS: ANISOCYTOSIS 1+ (5-10/OIF) (0-5/OIF); BAND NEUTROPHILS 8 %; EOSINOPHILS 2 %; EOSINOPHILS ABSOLUTE (CALC) 0.59 10/3/uL (0.0-0.53); HYPOCHROMIA 1+ (3-10/OIF) (0-2/OIF); IMMATURE GRANS ABSOLUTE (CALC) 0.29 10/3/uL (0.0-0.11); LYMPHOCYTES 15 %; LYMPHOCYTES ABSOLUTE (CALC) 4.41 10/3/uL (0.67-4.30); METAMYELOCYTES 1 %; MONOCYTES 5 %; MONOCYTES ABSOLUTE (CALC) 1.47 10/3/uL (0.21-1.20); NEUTROPHILS ABSOLUTE (CALC) 22.64 10/3/uL (2.02-8.40); PLATELET ESTIMATE ADQ (ADEQUATE); POLYCHROMASIA 1+ (2-5/OIF) (0-1/OIF); SEGMENTED NEUTROPHIL (0) 69 %; TOTAL NUCLEATED CELLS 100
[2016-12-30 23:41] LABS: HEMOGLOBIN 8.7 g/dL (12.0-16.0); MEAN CORPUSCULAR HEMOGLOB 24.6 pg (26.0-34.0); MEAN CORPUSCULAR VOLUME 84.7 fL (80-100); MEAN PLATELET VOLUME 10.6 fL (9.2-13.0); NUCLEATED RED BLOOD CELLS 2.9 /100WBC (0-0); PLATELET COUNT 271 10/3/uL (150-400); RBC DISTRIBUTION WIDTH 21.1 % (12.0-16.0); RED CELL COUNT 3.54 10/6/uL (4.0-5.6)
[2016-12-30 23:43] LABS: MANUAL DIFF YES %; WHITE BLOOD CELLS 38.1 10/3/uL (4.5-10.5)
[2016-12-30 23:59] LABS: CHLORIDE, SERUM 93 MMOL/L (96-112); CREATININE 4.28 MG/DL (0.55-1.02); GFR AFRICAN AMERICAN 12 ML/MIN (>=60); GFR NON AFRICAN AMERICAN 10 ML/MIN (>=60); GLUCOSE, SERUM 258 MG/DL (60-99); PHOSPHORUS, SERUM 6.5 MG/DL (2.5-4.5); SODIUM, SERUM 131 MMOL/L (135-148)
[2016-12-31] LABS: BUN (BLOOD UREA NITROGEN) 45 MG/DL (6-23); CO2 (CARBON DIOXIDE) 14 MMOL/L (24-34)
[2016-12-31 00:13] LABS: BAND NEUTROPHILS 3 %; EOSINOPHILS 1 %; EOSINOPHILS ABSOLUTE (CALC) 0.38 10/3/uL (0.0-0.53); IMMATURE GRANS ABSOLUTE (CALC) 0.38 10/3/uL (0.0-0.11); LYMPHOCYTES 15 %; LYMPHOCYTES ABSOLUTE (CALC) 5.72 10/3/uL (0.67-4.30); MONOCYTES 5 %; MONOCYTES ABSOLUTE (CALC) 1.91 10/3/uL (0.21-1.20); MYELOCYTES 1 %; NEUTROPHILS ABSOLUTE (CALC) 29.72 10/3/uL (2.02-8.40); SEGMENTED NEUTROPHIL (0) 75 %; TOTAL NUCLEATED CELLS 100
[2016-12-31 00:14] LABS: RBC MORPHOLOGY ABN (NORMAL)
== END 2016-12-30 23:40 | disposition expired | DRG 682 ==
LOC: ER 17:57 → CCU 19:31
PROVIDERS: Emergency Medicine; Internal Medicine Critical Care Medicine; Internal Medicine Nephrology
PROC: 5A12012 Performance of Cardiac Output, Single, Manual (ICD-10-PCS; principal; 2016-12-30)
PROC: 5A1945Z Respiratory Ventilation, 24-96 Consecutive Hours (ICD-10-PCS; 2016-12-30)
PROC: 0BH17EZ Insertion of Endotracheal Airway into Trachea, Via Natural or Artificial Opening (ICD-10-PCS; 2016-12-30)
PROC: 05HM33Z Insertion of Infusion Device into Right Internal Jugular Vein, Percutaneous Approach (ICD-10-PCS; 2016-12-30)
PROC: B543ZZA Ultrasonography of Right Jugular Veins, Guidance (ICD-10-PCS; 2016-12-30)
PROC: 5A1D60Z (ICD-10-PCS; 2016-12-30)
PROC: 02HV33Z Insertion of Infusion Device into Superior Vena Cava, Percutaneous Approach (ICD-10-PCS; 2016-12-30)
PROC: 4A02X4A Measurement of Cardiac Electrical Activity, Guidance, External Approach (ICD-10-PCS; 2016-12-30)
DX: N17.0 Acute kidney failure with tubular necrosis (principal); J96.01 Acute respiratory failure with hypoxia; I26.99 Other pulmonary embolism without acute cor pulmonale; E87.2 Acidosis; G93.40 Encephalopathy, unspecified; I48.0 Paroxysmal atrial fibrillation; E86.0 Dehydration; I12.9 Hypertensive chronic kidney disease with stage 1 through stage 4 chronic kidney disease, or unspecified chronic kidney disease; N39.0 Urinary tract infection, site not specified; E11.649 Type 2 diabetes mellitus with hypoglycemia without coma; Z96.41 Presence of insulin pump (external) (internal); K21.9 Gastro-esophageal reflux disease without esophagitis; E78.5 Hyperlipidemia, unspecified; F41.9 Anxiety disorder, unspecified; E83.51 Hypocalcemia; E87.5 Hyperkalemia; F32.9 Major depressive disorder, single episode, unspecified; D50.9 Iron deficiency anemia, unspecified; R00.1 Bradycardia, unspecified; N18.3 Chronic kidney disease, stage 3 (moderate); W19.XXXA Unspecified fall, initial encounter; T46.0X5A Adverse effect of cardiac-stimulant glycosides and drugs of similar action, initial encounter; E66.01 Morbid (severe) obesity due to excess calories; Z79.4 Long term (current) use of insulin; Z98.890 Other specified postprocedural states; Z79.01 Long term (current) use of anticoagulants; Z83.3 Family history of diabetes mellitus; Z68.38 Body mass index [BMI] 38.0-38.9, adult
CPT/HCPCS: 31500; 31720; 36569; 36600; 71010; 74000; 80048; 80053; 80069; 80074; 80162; 80305; 81001; 82330; 82533; 82550; 82553; 82570; 82607; 82728; 82746; 82803; 82805; 82947; 82962; 83036; 83540; 83550; 83605; 83615; 83735; 83874; 83880; 83930; 83935; 84100; 84132; 84133; 84134; 84145; 84295; 84439; 84443; 84484; 85014; 85025; 85610; 85652; 85730; 86140; 87040; 87070; 87205; 87389; 87449; 87493; 87493-59; 87641; 90945; 92950; 93005; 94002; 94003; 94640; 94770; 96365; 96366; 96375; 99285; A9270-GY; C1751; C1752; C8924; C9113; J0610; J1162; J2405; J2543; J3010; J3370; Q9957